=== PATIENT | male | born 1965 ===

== ENCOUNTER 2020-10-06 08:28 | Day surgery (SDC) | payer MEDICARE, MEDICAID ==
[~2020-10-06 08:28] MED LIST: Lactated Ringers 1,000 ML IV SCH
[2020-10-06] MEDS ORDERED: Ondansetron 4 MG/2 ML SDV IV ONE (08:29)
[2020-10-06] MEDS ORDERED: Propofol 200 MG/20 ML SDV IV ONE (08:29)
[2020-10-06] MEDS ORDERED: Dexamethasone 4 MG/ML SDV IV ONE (08:29)
[2020-10-06] MEDS ORDERED: Ketorolac 30 MG/ML SDV IVPUSH ONE (08:29)
[2020-10-06] MEDS ORDERED: Lidocaine 2% 20 ML MDV ONE (08:29)
[2020-10-06] MEDS ORDERED: fentaNYL 100 MCG/2 ML SDV IV ONE (08:29)
[2020-10-06] MEDS ORDERED: Midazolam 1 MG/ML 2 ML SDV IV ONE (08:29)
[2020-10-06] MEDS ORDERED: Scopolamine 1.5 MG Transdermal Patch TOP ONE (09:02)
[2020-10-06] MEDS ORDERED: Scopolamine 1.5 MG Transdermal Patch ONE (09:05)
[2020-10-06] MEDS ORDERED: Lidocaine 1% with EPINEPHrine 1:100,000 20 ML MDV ONE (10:06)
[2020-10-06] MEDS ORDERED: Lidocaine 1% with EPINEPHrine 1:100,000 30 ML MDV INJECT ONE ×2 (10:50→10:59)
--- NOTE | 2020-10-06 12:41 | OR ---
DATE: 10/06/2020 PREOPERATIVE DIAGNOSIS: Left inguinal hernia. POSTOPERATIVE DIAGNOSIS: Left inguinal hernia. PROCEDURE: Open repair of left inguinal hernia with mesh. ANESTHESIA: General. ESTIMATED BLOOD LOSS: Minimal. SPECIMEN: Hernia sac. INDICATION FOR PROCEDURE: This 55-year-old male has a physical examination compatible with left inguinal hernia. PROCEDURE IN DETAIL: After adequate preparation, a left groin incision was made and carried down to the external oblique. This was opened to expose the inguinal canal. Both the superior and inferior external oblique flaps were made. He initially was thought to have a large direct inguinal hernia. This sac was difficult to dissect off the cord structures eventually, however, he did have a portion of this sac that went up along the inguinal canal and cord structures. This was dissected free down to the deep inguinal ring. The hernia sac was then opened and using a 0 Prolene, the sac was ligated by a running stitch on the inside of the sac and the distal sac was then amputated. The inguinal floor was strengthened using a pre-cut keyholed Prolene mesh. This was sewn in place using a 0 Prolene suture in a running fashion along the inguinal ligament and in an interrupted fashion on the superior margin. A keyhole was made around the cord structures. This was then encircled around the cord and a Prolene was used to close the keyhole on the lateral aspect. Hemostasis seemed controlled. There was only minimal bleeding throughout the case. 1% Xylocaine was used to infiltrate the inguinal ligament and rectus muscle. The external oblique was closed with 2-0 Vicryl and Monocryl for the skin. [facility] /[id number]
== END 2020-10-06 13:35 | disposition home or self-care (01) ==
LOC: DL.SDS 08:28
PROVIDERS: ATTEND Surgery
DX: K40.90 Unilateral inguinal hernia, without obstruction or gangrene, not specified as recurrent (principal); Z01.812 Encounter for preprocedural laboratory examination; Z20.822 Contact with and (suspected) exposure to COVID-19
CPT/HCPCS: 00830; 49505; A9270; C1781; J1100; J1885; J2001; J2250; J2405; J2704; J3010; J7120; U0002; 88302